=== PATIENT | male | born 1940 | race Caucasian/White ===

== ENCOUNTER → 2016-09-03 | Outpatient (CLI) | payer BC, OTHER ==
--- NOTE | 2016-09-03 11:00 | DX ---
PA and Lateral Chest September 03, 2016 Clinical Indications: Shortness of breath. Atrial flutter. Comparison June 21, 2016. Findings: The lungs are hypoventilated with some basilar atelectatic change. The heart and pulmonary vessels are normal. There are no pleural effusions and no pneumothorax. The bones are unremarkable for this age. Impression: Hypoventilation. Otherwise, unremarkable examination.
== END ==
LOC: BMCIMAGING 10:40
PROVIDERS: ATTEND Internal Medicine Cardiovascular Disease
DX: R06.02 Shortness of breath (principal)